=== PATIENT | male | born 1940 | race Caucasian/White ===

== ENCOUNTER 2016-12-08 08:32 | Day surgery (SDC) | payer MEDICARE, BC ==
[~2016-12-08 08:32] MED LIST: BUPIVACAINE HCL 0.75% INJ/PF (7.5 MG/1 ML) 10 ML SDV OS PRN; KETOROLAC TROMETHAMINE 0.45% 4 DROP/0.4 ML DROPERETTE OS PRN; LIDOCAINE 3.5% OPH GEL/PF 1 ML/TUBE OS PRN; LIDOCAINE 4% INJ/PF (40 MG/ML) 5 ML AMPUL OS PRN
[2016-12-08] MEDS ORDERED: PHENYLEPHRINE/KETOROLAC 1%-0.3% 4 ML VIAL ONE (09:23)
[2016-12-08] MEDS ORDERED: CHONDR SU A NA/HYALUR INTRAOC KIT (SURGICARE) ONE (09:24)
[2016-12-08] MEDS: CYCLOPENTOLATE 0.2%/PHENYLEPHRINE 1% OPH SOLN 2 ML OS PRN ×3 (10:15→10:38)
[2016-12-08] MEDS: TETRACAINE HCL 0.5% OPH SOLN 2 ML ONE ×3 (10:15→10:52)
[2016-12-08] MEDS: TROPICAMIDE 1% OPH SOLN 3 ML OS PRN ×3 (10:16→10:38)
[2016-12-08] MEDS: BESIFLOXACIN HCL 0.6% OPH SUSP 5 ML BOTTLE OS PRN ×3 (10:16→11:21)
[2016-12-08] MEDS ORDERED: FENTANYL CITRATE INJ/PF 100 MCG/2 ML AMPUL ONE (10:30)
[2016-12-08] MEDS ORDERED: MIDAZOLAM 2 MG/2 ML INJ ONE (10:30)
--- NOTE | 2016-12-08 12:48 | [facility] OPERATIVE REPORT E ---
[facility] Operative Report NAME: SERGIO WHITLEY AGE: 75Y DATE OF SURGERY: 12/08/2016 ROOM: PREOPERATIVE DIAGNOSIS: Cataract left eye. POSTOPERATIVE DIAGNOSIS: Cataract left eye. PROCEDURE PERFORMED: PHACOEMULSIFICATION WITH TORIC POSTERIOR CHAMBER INTRAOCULAR LENS, LEFT EYE. SURGEON: PILLO CASTELLANO MD ANESTHESIA: TOPICAL WITH MAC. INDICATIONS FOR SURGERY: Difficulty reading words on license plate. Best corrected vision acuity 20/50. PROCEDURE: The patient was brought to the Operating Room and placed on the operative table. Prior to the surgery, the patient was placed in a seated position and the 0270, 180 degree axis of the eye were marked using a marking level. topical anesthesia was administered. This consisted of instrument wipe pledgets soaked in a solution of 4% Xylocaine mixed with 0.75% Marcaine in a 1:2 ratio. A 2 x 1 cm pledget was placed in the superior fornix. A 1 x 1 cm pledget was placed in the inferior fornix. The eye was patched shut for 5 minutes. The patch was removed. The eye was sterilely prepped and draped in the usual manner. Lid speculum was placed in the eye. The pledgets were removed. 4-0 black silk sutures were placed around the superior and the inferior rectus muscles to be used as traction. A conjunctival peritomy was made at the 10 o'clock position. Hemostasis was obtained with bipolar cautery. A posterior limbal groove was created using a crescent knife and dissected anteriorly towards the cornea. A sharp point blade was used to create a paracentesis site at the 2 o'clock position. A 2.4 mm keratome was used to enter the anterior chamber through the groove. Viscoelastic was injected into the anterior chamber. An anterior capsulotomy was performed using Utrata forceps in a capsulorrhexis fashion. Hydrodissection and hydrodelineation were performed. Phacoemulsification was performed in diwbmy-nei-qbpmmov technique. A total of 5.96 CBE seconds phaco time was used. Following this, the I/A unit was used to remove residual cortex. Viscoelastic was injected into the capsular bag.Prior to insertion of the lens, the 176 degree axis was marked on the eye . Intraocular lens model [id number], 21.0 diopters, serial number [id number] was placed in the capsular bag. The lens was rotated to this axis after it was inserted.The I/A unit was used to remove residual viscoelastic. The wound was seen to be watertight under high and low pressure, and no sutures were placed. The intraocular lens was well centered. The pressure was adjusted in the eye to normal pressure. The 4-0 black silk sutures and lid speculum were removed. The eye was shielded after Besivance drops were placed. The patient tolerated the procedure well and was sent to the Recovery Room in good condition. Prior to insertion of the lens, the 176 degree axis was marked on the eye and the lens was rotated to this axis after it was inserted. DICTATING PHYSICIAN: PILLO CASTELLANO M.D. [id number] PHY#: [id number] ID: [id number] JOB#: [id number] ACCT: [id number] cc:PILLO CASTELLANO M.D. > MTDD
--- NOTE | 2016-12-09 05:33 | [facility] DISCHARGE SUMMARY E ---
[facility] Discharge Summary NAME: SERGIO WHITLEY AGE: 75Y ADMITTED: 12/08/2016 DISCHARGED: HOSPITAL COURSE: The patient is 75-year-old gentleman who underwent uneventful cataract extraction with Toric intraocular lens implant left eye on 12/08/2016. He will be discharged to home. He is instructed to resume preoperative medications, take Tylenol as needed for discomfort, to keep his eye shielded, to use Besivance, Durezol, and Ilevro at 3 p.m. and 8 p.m., and to follow up in my office in 1 day. DICTATING PHYSICIAN: PILLO CASTELLANO M.D. [id number] PHY#: [id number] ID: [id number] JOB#: [id number] ACCT: [id number] cc:PILLO CASTELLANO M.D. >
== END 2016-12-08 12:02 | disposition home or self-care (01) ==
LOC: SC 08:32
PROVIDERS: ATTEND Ophthalmology
PROC: 08RK3JZ Replacement of Left Lens with Synthetic Substitute, Percutaneous Approach (ICD-10-PCS; principal; 2016-12-08 10:00)
DX: H25.813 Combined forms of age-related cataract, bilateral (principal); H57.03 Miosis; H01.002 Unspecified blepharitis right lower eyelid; H01.005 Unspecified blepharitis left lower eyelid; H43.813 Vitreous degeneration, bilateral; M32.8 Other forms of systemic lupus erythematosus; I10 Essential (primary) hypertension; K21.9 Gastro-esophageal reflux disease without esophagitis; Z79.899 Other long term (current) drug therapy; Z79.82 Long term (current) use of aspirin; Z88.8 Allergy status to other drugs, medicaments and biological substances; Z88.2 Allergy status to sulfonamides; Z87.891 Personal history of nicotine dependence; Z85.51 Personal history of malignant neoplasm of bladder
CPT/HCPCS: 82962; 66984; V2787; J2250; J3490 ×3; A9270; J3010; C9447; 142

== ENCOUNTER 2017-01-05 06:31 | Day surgery (SDC) | payer MEDICARE, BC ==
[~2017-01-05 06:31] MED LIST changes: +BUPIVACAINE HCL 0.75% INJ/PF (7.5 MG/1 ML) 10 ML SDV OD PRN; -BUPIVACAINE HCL 0.75% INJ/PF (7.5 MG/1 ML) 10 ML SDV OS PRN; +KETOROLAC TROMETHAMINE 0.45% 4 DROP/0.4 ML DROPERETTE OD PRN; -KETOROLAC TROMETHAMINE 0.45% 4 DROP/0.4 ML DROPERETTE OS PRN; -LIDOCAINE 3.5% OPH GEL/PF 1 ML/TUBE OS PRN; +LIDOCAINE 4% INJ/PF (40 MG/ML) 5 ML AMPUL OD PRN; -LIDOCAINE 4% INJ/PF (40 MG/ML) 5 ML AMPUL OS PRN
[2017-01-05] MEDS: TROPICAMIDE 1% OPH SOLN 3 ML OD PRN ×3 (06:49→07:23)
[2017-01-05] MEDS: CYCLOPENTOLATE 0.2%/PHENYLEPHRINE 1% OPH SOLN 2 ML OD PRN ×3 (06:49→07:23)
[2017-01-05] MEDS: BESIFLOXACIN HCL 0.6% OPH SUSP 5 ML BOTTLE OD PRN ×4 (06:50→08:26)
[2017-01-05] MEDS: TETRACAINE HCL 0.5% OPH SOLN 0.6 ML DROPERETTE OD PRN ×2 (06:51→07:38)
[2017-01-05] MEDS ORDERED: MIDAZOLAM 2 MG/2 ML INJ ONE ×2 (07:30)
[2017-01-05] MEDS: CHONDR SU A NA/HYALUR INTRAOC KIT (SURGICARE) ONE ×2 (08:11)
[2017-01-05] MEDS: LIDOCAINE 1% INJ-PF (10 MG/ML) 30 ML SDV ONE ×2 (08:11)
[2017-01-05] MEDS: PHENYLEPHRINE/KETOROLAC 1%-0.3% 4 ML VIAL ONE ×2 (08:11)
--- NOTE | 2017-01-05 08:48 | [facility] OPERATIVE REPORT E ---
[facility] Operative Report NAME: SERGIO WHITLEY AGE: 76Y DATE OF SURGERY: 01/05/2017 ROOM: PREOPERATIVE DIAGNOSIS: Cataract, right eye. POSTOPERATIVE DIAGNOSIS: Cataract, right eye. PROCEDURE PERFORMED: Phacoemulsification with posterior chamber intraocular lens, right eye. SURGEON: Aviva Castellano MD ANESTHESIA: Topical with MAC. INDICATIONS FOR SURGERY: Difficulty reading road signs and glare. Best corrected visual acuity 20/30. PROCEDURE: The patient was brought to the operating room and placed on the operative table. Following tetracaine drops, topical anesthesia was administered. This consisted of instrument wipe pledgets soaked in a solution of 4% Xylocaine mixed with 0.75% Marcaine in a 1:2 ratio. A 2 x 1 cm pledget was placed in the superior fornix. A 1 x 1 cm pledget was placed in the inferior fornix. The eye was patched shut for 5 minutes. The patch was removed. The eye was sterilely prepped and draped in the usual manner. Lid speculum was placed in the eye. The pledgets were removed. 4-0 black silk sutures were placed around the superior and the inferior rectus muscles to be used as traction. A conjunctival peritomy was made at the 10 o'clock position. Hemostasis was obtained with bipolar cautery. A posterior limbal groove was created using a crescent knife and dissected anteriorly towards the cornea. A sharp point blade was used to create a paracentesis site at the 2 o'clock position. A 2.4 mm keratome was used to enter the anterior chamber through the groove. Viscoelastic was injected into the anterior chamber. An anterior capsulotomy was performed using Utrata forceps in a capsulorrhexis fashion. Hydrodissection and hydrodelineation were performed. Phacoemulsification was performed in ufnpbr-ctk-nyukokt technique. A total of 4.52 CDE phaco time was used. Following this, the I/A unit was used to remove residual cortex. Viscoelastic was injected into the capsular bag. Intraocular lens model [id number], 20.0 diopters, serial number [id number] was placed in the capsular bag. The I/A unit was used to remove residual viscoelastic. The wound was seen to be watertight under high and low pressure, and no sutures were placed. The intraocular lens was well centered. The pressure was adjusted in the eye to normal pressure. The 4-0 black silk sutures and lid speculum were removed. The eye was shielded after Besivance drops were placed. The patient tolerated the procedure well and was sent to the recovery room in good condition. DICTATING PHYSICIAN: AVIVA CASTELLANO M.D. [id number] PHY#: [id number] ID: [id number] JOB#: [id number] ACCT: [id number] cc:AVIVA CASTELLANO M.D. >
--- NOTE | 2017-01-05 08:48 | [facility] DISCHARGE SUMMARY E ---
[facility] Discharge Summary NAME: SERGIO WHITLEY AGE: 76Y ADMITTED: 01/05/2017 DISCHARGED: 01/05/2017 PREOPERATIVE DIAGNOSIS: Cataract, right eye. POSTOPERATIVE DIAGNOSIS: Cataract, right eye. HOSPITAL COURSE: The patient is a 76-year-old gentleman who underwent uneventful cataract extraction with intraocular lens implant, right eye, on 01/05/2017. He will be discharged to home. He was instructed to resume preoperative medications, take Tylenol as needed for discomfort, to keep his eye shielded, to use Besivance, Durezol, and Ilevro at 3 p.m. and 8 p.m., and to followup in my office in 1 day. DICTATING PHYSICIAN: PILLO CASTELLANO M.D. [id number] PHY#: [id number] ID: [id number] JOB#: [id number] ACCT: [id number] cc:PILLO CASTELLANO M.D. >
== END 2017-01-05 09:02 | disposition home or self-care (01) ==
LOC: SC 06:31
PROVIDERS: ATTEND Ophthalmology
PROC: 08RJ3JZ Replacement of Right Lens with Synthetic Substitute, Percutaneous Approach (ICD-10-PCS; principal; 2017-01-05 08:00)
DX: H25.811 Combined forms of age-related cataract, right eye (principal); Z96.1 Presence of intraocular lens; H57.03 Miosis; I10 Essential (primary) hypertension; K21.9 Gastro-esophageal reflux disease without esophagitis; E11.9 Type 2 diabetes mellitus without complications; Z79.899 Other long term (current) drug therapy; Z88.2 Allergy status to sulfonamides; Z88.8 Allergy status to other drugs, medicaments and biological substances; Z79.82 Long term (current) use of aspirin; Z87.891 Personal history of nicotine dependence; Z79.84 Long term (current) use of oral hypoglycemic drugs; Z85.51 Personal history of malignant neoplasm of bladder; M32.9 Systemic lupus erythematosus, unspecified
CPT/HCPCS: 66984; 82962; V2632; J2250; J3490 ×4; A9270; C9447; 142